=== PATIENT | female | born 1965 | race African-American/Black ===

== ENCOUNTER → 2021-02-06 | Day surgery (SDC) | payer MEDICARE ==
[~2021-02-06] VITALS: Ht 170.2 cm; Wt 214.0 kg
[~2021-02-06] MED LIST: IV NORMAL SALINE 1000ML BAG 1,000 ML IV ONE; LIDOCAINE 2% PF 5 ML VIAL. ONE; PROPOFOL 10 MG/ML (20ML) VIAL. IV ONE; SODIUM PHOSPHATES 19/7GM 133 ML ENEMA. ONE; TRAM50TA PO
[2021-02-06 10:29] VITALS: BP 151/87
[2021-02-06 12:05] VITALS: BP 102/51
--- NOTE | 2021-02-07 14:08 | PATHOLOGY ---
[facility] Accession Number: [id number] . 01 Material submitted: . PART A: cecum - CECAL BIOPSY PART B: colon - ASCENDING COLON BIOPSY. Modifiers: ascending PART C: colon - TRANSVERSE COLON BIOPSY. Modifiers: transverse PART D: colon - DESCENDING COLON BIOPSY. Modifiers: descending PART E: sigmoid colon - SIGMOID COLON BIOPSY PART F: sigmoid colon - SIGMOID COLON POLYPS BIOPSY PART G: rectum - RECTAL BIOPSY . 01 Clinical history: . COLONOSCOPY ABDOMINAL PAIN,ABNORMAL CT . 02 Diagnosis: A. Colon biopsies, cecum: - Colonic mucosa showing no evidence of an active chronic colitis, acute colitis, or microscopic colitis. . B. Colon biopsy, ascending colon: - Colonic mucosa showing no evidence of an active chronic colitis, acute colitis, or microscopic colitis. . C. Colon biopsy, transverse colon: - Colonic mucosa showing no evidence of an active chronic colitis, acute colitis, or microscopic colitis. . D. Colon biopsies, descending colon: - Colonic mucosa showing no evidence of an active chronic colitis, acute colitis, or microscopic colitis. . E. Colon biopsy, sigmoid colon: - Colonic mucosa showing no evidence of an active chronic colitis, acute colitis, or microscopic colitis. . F. Colon biopsies, sigmoid colon polyps: - Hyperplastic polyps. . G. Colorectal biopsy, rectum: - Rectal mucosa showing no evidence of an active chronic colitis, acute colitis, or microscopic colitis. (JPM:wesly; 02/07/2021) [facility] [place] 02/07/2021 1045 Local . 02 Comment: Sections of the cecal, ascending colon, transverse colon, descending colon, sigmoid colon, and rectal biopsies appear similar and reveal segments of colonic mucosa showing congestion, focal recent lamina propria hemorrhage, and focal reactive surface epithelial hyperplastic changes. There is no evidence of an active chronic destructive colitis, acute infectious or ischemic colitis, or microscopic colitis. Sections of the sigmoid colon polyp biopsies reveal hyperplastic polyps. There are no adenomatous changes or evidence of malignancy. (JPM:wesly; 02/07/2021) . 02 Electronically signed: . Kain Alejandre MD, Pathologist NPI- [id number] . 01 Gross description: . A. The specimen is received in formalin, labeled "Brown, Serese, cecal BX" and consists of 2 diaz irregular tissues aggregating 0.4 x 0.3 x 0.2 cm are submitted in toto in A1. . B. The specimen is received in formalin, labeled "Brown, Serese, ascending colon BX" and consists of a diaz irregular tissue measuring 0.3 x 0.3 x 0.2 cm which is submitted in toto in B1. . C. The specimen is received in formalin, labeled "Brown, Serese, transverse colon BX" and consists of 2 diaz irregular tissues aggregating 0.6 x 0.3 x 0.2 cm which are submitted in toto in C1. . D. The specimen is received in formalin, labeled "Brown, Serese, descending colon BX" and consists of multiple diaz irregular tissues aggregating 0.7 x 0.6 x 0.2 cm which are submitted in toto in D1. . E. The specimen is received in formalin, labeled "Brown, Serese, sigmoid colon BX" and consists of a diaz irregular tissue measuring 0.2 x 0.2 x 0.2 cm which is submitted in toto in E1. . F. The specimen is received in formalin, labeled "Brown, Serese, sigmoid colon BX polyps" and consists of 3 diaz irregular tissues aggregating 0.4 x 0.4 x 0.2 cm which are submitted in toto in F1. . G. The specimen is received in formalin, labeled "Brown, Serese, rectal BX" and consists of a diaz irregular tissue measuring 0.4 x 0.2 x 0.2 cm which is submitted in toto in G1. ([facility] [place]; 02/06/2021) DKA/DKA 02/06/2021 1636 Local . 02 Pathologist provided ICD-10: K63.5, Z12.11, R10.9 . 02 CPT . 983146, 105245, 276845, 945756, [id number], [id number], [id number] Specimen Comment: A courtesy copy of this report has been sent to [phone], [phone] Specimen Comment: [id number] Specimen Comment: Report sent to / DR SARAH Performed at: 01 [facility] [address], [place] [id number] MD Wilson Noriega MD Phone: [phone] Performed at: 02 [facility] [address] [place], [place] [id number] MD Kain Alejandre MD Phone: [phone]
== END | disposition home or self-care (01) ==
LOC: ENDOS 09:55
PROVIDERS: ATTEND Internal Medicine Gastroenterology
DX: R10.32 Left lower quadrant pain (principal); K64.0 First degree hemorrhoids; K52.9 Noninfective gastroenteritis and colitis, unspecified; K63.5 Polyp of colon; K63.89 Other specified diseases of intestine; K62.89 Other specified diseases of anus and rectum; I10 Essential (primary) hypertension; J43.9 Emphysema, unspecified; E66.9 Obesity, unspecified; M19.90 Unspecified osteoarthritis, unspecified site; G47.30 Sleep apnea, unspecified; F17.210 Nicotine dependence, cigarettes, uncomplicated; Z79.899 Other long term (current) drug therapy; Z98.890 Other specified postprocedural states
CPT/HCPCS: 45380; J2704; 88305